=== PATIENT | male | born 1940 | race Caucasian/White ===

== ENCOUNTER 2025-02-23 11:18 | Emergency (ER) | payer OTHER ==
[~2025-02-23] VITALS: Ht 165.1 cm; Wt 77.1 kg
[2025-02-23] MEDS ORDERED: LIPITOR40 M1 (11:48)
[2025-02-23] MEDS ORDERED: AMLODIPINE-OLM1 EAC2 (11:54)
[2025-02-23] MEDS ORDERED: BENICAR20 MG (11:54)
[2025-02-23] MEDS ORDERED: CARBIDOPA25 MG (11:54)
== END 2025-02-23 14:06 | disposition home or self-care (01) ==
LOC: ER 11:19
DX: G89.11 Acute pain due to trauma (principal); R51.9 Headache, unspecified